=== PATIENT | female | born 1980 | race African-American/Black ===

== ENCOUNTER 2018-10-15 20:12 | Emergency (ER) | payer OTHER ==
[~2018-10-15] VITALS: Ht 162.6 cm; Wt 86.2 kg
[~2018-10-15 20:12] MED LIST: BUTALB-APAP-CA1 EACH; IBUPROFEN 800800 M1 PO; LEVOTHROID137 MCG PO; MOBIC15 MG PO; NORCO 5-325 TA1 EACH PO; PHENERGAN 25 MG25 M1 PO; PHENERGAN50 MG RC; PROVENTIL HFA6.7 G1 INH; TRAMADOL 50 MG50 MG PO; VALIUM2 MG PO; ZANAFLEX4 MG; ZPAK PO
[2018-10-16 00:15] VITALS: BP 122/59
== END 2018-10-16 00:15 | disposition home or self-care (01) ==
LOC: ER 20:12
DX: R51 Headache (principal); E78.00 Pure hypercholesterolemia, unspecified; E89.0 Postprocedural hypothyroidism; F17.210 Nicotine dependence, cigarettes, uncomplicated; Z98.890 Other specified postprocedural states

== ENCOUNTER 2020-11-11 06:33 | Emergency (ER) | payer OTHER ==
[~2020-11-11] VITALS: Ht 162.6 cm; Wt 72.6 kg
[2020-11-11] MEDS ORDERED: PENICILLIN VK500 M1 PO (07:27)
[2020-11-11] MEDS ORDERED: NORCO7.5 PO (07:27)
[2020-11-11 07:36] VITALS: BP 134/70
== END 2020-11-11 07:36 | disposition home or self-care (01) ==
LOC: ER 06:33
DX: M27.69 Other endosseous dental implant failure (principal); E78.5 Hyperlipidemia, unspecified; F17.210 Nicotine dependence, cigarettes, uncomplicated; Z79.899 Other long term (current) drug therapy